=== PATIENT | female | born 1990 | race American Indian/Alaskan Native ===

== ENCOUNTER 2018-11-16 13:39 | Emergency (ER) | payer SELFPAY ==
--- NOTE | 2018-11-16 13:48 | Event Note ---
ED Screening Note ED Screening Note: pt presents generalized abd discomfort that began three days ago describes it as a burning sensation has not taken anything no N/V/D no fever no urinary sx LNMP: october 14 no PMHx This initial assessment/diagnostic orders/clinical plan/treatment(s) is/are subject to change based on patients health status, clinical progression and re- assessment by fellow clinical providers in the ED. Further treatment and workup at subsequent clinical providers discretion. Patient/guardian urged not to elope from the ED as their condition may be serious if not clinically assessed and managed.
[2018-11-16 13:49] VITALS: BP 158/61
--- NOTE | 2018-11-16 15:22 | Emergency Department Report ---
Chief Complaint: Abdominal Pain Stated Complaint: STOMACH PAIN Time Seen by Provider: 11/16/18 13:46 - HPI History of Present Illness: Joya is a 28 yo female who presents to ER for test. LMP 10/14/2018. MSE completed. Recommended home test. She is pain free. - Exam Vital Signs: Vital Signs 11/16/18 13:47 Temperature 97.8 F Pulse Rate 88 Respiratory 16 Rate Blood Pressure 158/61 O2 Sat by Pulse 96 Oximetry MSE screening note: Focused history and physical exam performed. Due to findings the following was ordered: ED Disposition for MSE Clinical Impression: Encounter for medical screening examination Disposition: Z-07 MED SCREENING EXAM-LEFT Condition: Stable
== END 2018-11-16 15:25 | disposition left against medical advice (07) ==
LOC: ED 13:39
DX: R10.9 Unspecified abdominal pain (principal); Z53.21 Procedure and treatment not carried out due to patient leaving prior to being seen by health care provider